=== PATIENT | female | born 1950 | race African-American/Black ===

== ENCOUNTER 2016-08-19 11:38 | Emergency (ER) | payer MEDICAID ==
[~2016-08-19] VITALS: Ht 162.6 cm; Wt 59.1 kg
[~2016-08-19 11:38] MED LIST: ALBU8.5H IH; AMLO-511 PO; MONT5TAB13 PO; SERT50TA12 PO
[2016-08-19 15:21] LABS: APPEARANCE,URINE TURBID (CLEAR); GLUCOSE, URINE (UA) NEGATIVE (NEGATIVE); KETONES,URINE NEGATIVE (NEGATIVE); LEUKOCYTE ESTERASE ,URINE LARGE (NEGATIVE); PH,URINE 5.5 (5.0-8.0); PROTEIN,URINE SEE CONFIRM (NEGATIVE)
[2016-08-19 15:34] LABS: ADD UA MICROSCOPIC YES; OCCULT BLOOD,URINE SMALL (NEGATIVE); RBC,URINE 26-50 /HPF (0-2); SQUAMOUS EPITHELIAL CELL,UR Few /LPF (None Seen); SULFOSALICYLIC ACID,URINE 3+ (Negative); WBC,URINE Full Field /HPF (0-5)
[2016-08-19] MEDS ORDERED: CefTRIAXone SODIUM 1 GM/VIAL IM ONE (16:00)
[2016-08-19] MEDS ORDERED: LIDOCAINE HCL/PF 1% 2 ML VIAL IM ONE (16:00)
[2016-08-19 16:06] VITALS: BP 116/71
== END 2016-08-19 16:19 | disposition home or self-care (01) ==
LOC: EMS 11:39
DX: N39.0 Urinary tract infection, site not specified (principal); J45.909 Unspecified asthma, uncomplicated; J44.9 Chronic obstructive pulmonary disease, unspecified; I10 Essential (primary) hypertension; E78.00 Pure hypercholesterolemia, unspecified; F14.90 Cocaine use, unspecified, uncomplicated
CPT/HCPCS: 81001; 81002; 87077; 87086; 96372; 99284; J0696; J3490

== ENCOUNTER 2018-09-18 18:34 | Emergency (ER) | payer MEDICARE, MEDICAID ==
[~2018-09-18] VITALS: Ht 162.6 cm; Wt 62.5 kg
[~2018-09-18 18:34] MED LIST changes: -ALBU8.5H IH; +ALBU8.5H8 IH
[2018-09-18 19:02] LABS: BASOPHILS % (AUTO) 0.9 % (0.0-2.0); EOSINOPHILS % (AUTO) 3.8 % (1.0-6.0); HEMATOCRIT 39.3 % (36-46); LYMPHOCYTES % (AUTO) 30.1 % (22.0-44.0); MEAN CORPUSCULAR HEMOGLOBIN 30.3 pg (26.0-34.0); MEAN CORPUSCULAR HGB CONC 33.1 G/dL (31.0-37.0); MEAN CORPUSCULAR VOLUME 92 fL (80-100); MONOCYTES # (AUTO) 0.7 K/uL (0.1-1.0); MONOCYTES % (AUTO) 10.4 % (2.0-9.0); NEUTROPHILS # (AUTO) 3.6 K/uL (1.8-7.7); NEUTROPHILS % (AUTO) 54.8 % (40.0-70.0); PLATELET COUNT (AUTO) 280 K/uL (150-450); RED CELL DISTRIBUTION WIDTH 13.7 % (11.5-14.5)
[2018-09-18 19:14] LABS: CALCIUM, TOTAL 9.8 mg/dL (8.8-10.5); CREATININE 1.59 mg/dL (0.60-1.30)
[2018-09-18 19:27] LABS: ALBUMIN 3.8 g/dL (3.4-5.0); BILIRUBIN,TOTAL 0.3 mg/dL (0.1-1.0)
[2018-09-18 21:30] LABS: APPEARANCE,URINE CLOUDY (CLEAR); BILIRUBIN,URINE NEGATIVE (NEGATIVE); GLUCOSE, URINE (UA) NEGATIVE (NEGATIVE); KETONES,URINE NEGATIVE (NEGATIVE); LEUKOCYTE ESTERASE ,URINE NEGATIVE (NEGATIVE); NITRATE,URINE NEGATIVE (NEGATIVE); OCCULT BLOOD,URINE NEGATIVE (NEGATIVE); PROTEIN,URINE NEGATIVE (NEGATIVE)
[2018-09-18] MEDS ORDERED: TraMADol HCL 50 MG TABLET PO ONE (21:30)
[2018-09-18 23:00] VITALS: BP 145/67
== END 2018-09-18 23:27 | disposition home or self-care (01) ==
LOC: EMS 18:36
DX: R07.81 Pleurodynia (principal); F14.10 Cocaine abuse, uncomplicated; F32.9 Major depressive disorder, single episode, unspecified; E78.00 Pure hypercholesterolemia, unspecified; I10 Essential (primary) hypertension; J45.909 Unspecified asthma, uncomplicated; Z79.899 Other long term (current) drug therapy; W01.0XXA Fall on same level from slipping, tripping and stumbling without subsequent striking against object, initial encounter; Y93.89 Activity, other specified; Y92.89 Other specified places as the place of occurrence of the external cause; Y99.8 Other external cause status

== ENCOUNTER → 2019-02-20 | Outpatient (CLI) | payer MEDICARE, MEDICAID ==
[~2019-02-20] MED LIST changes: -AMLO-511 PO; +AMLO5TAB9 PO
[2019-02-20 14:42] LABS: BASOPHILS % (AUTO) 0.7 % (0.0-2.0); EOSINOPHILS % (AUTO) 3.6 % (1.0-6.0); HEMATOCRIT 39.2 % (36-46); LYMPHOCYTES # (AUTO) 1.9 K/uL (1.0-4.8); LYMPHOCYTES % (AUTO) 38.3 % (22.0-44.0); MEAN CORPUSCULAR HEMOGLOBIN 30.5 pg (26.0-34.0); MEAN CORPUSCULAR HGB CONC 33.2 G/dL (31.0-37.0); MEAN CORPUSCULAR VOLUME 92 fL (80-100); MONOCYTES # (AUTO) 0.4 K/uL (0.1-1.0); MONOCYTES % (AUTO) 7.8 % (2.0-9.0); NEUTROPHILS # (AUTO) 2.4 K/uL (1.8-7.7); NEUTROPHILS % (AUTO) 49.6 % (40.0-70.0); PLATELET COUNT (AUTO) 232 K/uL (150-450); RED BLOOD CELL COUNT(AUTO) 4.27 MIL/uL (4.00-5.20); RED CELL DISTRIBUTION WIDTH 14.5 % (11.5-14.5)
[2019-02-20 14:56] LABS: CALCIUM, TOTAL 9.1 mg/dL (8.8-10.5); CREATININE 1.19 mg/dL (0.60-1.30); MAGNESIUM 2.1 mg/dL (1.80-2.40); PHOSPHORUS 3.9 mg/dL (2.5-4.9); POTASSIUM 4.2 mmol/L (3.5-5.1)
[2019-02-20 15:12] LABS: HEMOGLOBIN A1C 5.8 % (4.5-6.2)
== END | disposition home or self-care (01) ==
LOC: LABMN 13:56
PROVIDERS: ATTEND Internal Medicine Nephrology
DX: I12.9 Hypertensive chronic kidney disease with stage 1 through stage 4 chronic kidney disease, or unspecified chronic kidney disease (principal); N18.3 Chronic kidney disease, stage 3 (moderate); J42 Unspecified chronic bronchitis
CPT/HCPCS: 83036; 83735; 83970

== ENCOUNTER 2019-07-04 15:21 | Inpatient (IN) | payer MEDICARE, MEDICAID ==
[~2019-07-04] VITALS: Ht 167.6 cm; Wt 56.9 kg
[2019-07-04 17:09] LABS: BASOPHILS % (AUTO) 0.8 % (0.0-2.0); EOSINOPHILS % (AUTO) 3.5 % (1.0-6.0); HEMATOCRIT 39.5 % (36-46); LYMPHOCYTES # (AUTO) 2.1 K/uL (1.0-4.8); LYMPHOCYTES % (AUTO) 35.2 % (22.0-44.0); MEAN CORPUSCULAR HGB CONC 32.8 G/dL (31.0-37.0); MEAN CORPUSCULAR VOLUME 91 fL (80-100); MONOCYTES # (AUTO) 0.5 K/uL (0.1-1.0); MONOCYTES % (AUTO) 7.8 % (2.0-9.0); NEUTROPHILS # (AUTO) 3.2 K/uL (1.8-7.7); NEUTROPHILS % (AUTO) 52.7 % (40.0-70.0); PLATELET COUNT (AUTO) 221 K/uL (150-450); RED BLOOD CELL COUNT(AUTO) 4.33 MIL/uL (4.00-5.20); RED CELL DISTRIBUTION WIDTH 13.6 % (11.5-14.5)
[2019-07-04 17:21] LABS: CREATININE 1.19 mg/dL (0.60-1.30); POTASSIUM 3.9 mmol/L (3.5-5.1)
[2019-07-04 17:27] LABS: ALBUMIN 3.8 g/dL (3.4-5.0); BILIRUBIN,TOTAL 0.3 mg/dL (0.1-1.0); TOTAL PROTEIN, SERUM 6.8 g/dL (6.4-8.2)
[2019-07-04] MEDS ORDERED: 0.9% SODIUM CHLORIDE 10 ML SYRINGE IVP PRN (21:15)
[2019-07-04] MEDS ORDERED: ACETAMINOPHEN 325 MG TABLET PO PRN ×2 (21:15→22:30)
[2019-07-04] MEDS ORDERED: ONDANSETRON HCL 4 MG/2 ML VIAL IVP PRN ×2 (21:15→22:30)
[2019-07-04] MEDS ORDERED: MAGNESIUM HYDROXIDE SUSPENSION 30 ML UDCUP PO PRN (22:30)
[2019-07-04] MEDS ORDERED: HYDROCODONE/ACETAMINOPHEN 5-325 MG TABLET PO PRN (22:30)
[2019-07-04] MEDS ORDERED: ZOLPIDEM TARTRATE 5 MG TABLET PO PRN (22:30)
[2019-07-04] MEDS ORDERED: BISACODYL 10 MG RECTAL RECTAL SUPPOSITORY PR PRN (22:30)
[2019-07-04] MEDS ORDERED: MORPHINE SULFATE 2 MG/ML SYRINGE IVP PRN (22:30)
[2019-07-04] MEDS: HEPARIN SODIUM,PORCINE 5,000 UNITS/ML VIAL SQ SCH (23:28)
[2019-07-04] MEDS: NITROGLYCERIN 2% (1 GM=INCH) PACKET TP SCH (23:29)
[2019-07-05] VITALS (7 sets, daily range): BP systolic 115–146; BP diastolic 75–99
[2019-07-05] MEDS: NITROGLYCERIN 2% (1 GM=INCH) PACKET TP SCH ×2 (08:00→15:24)
[2019-07-05] MEDS: HEPARIN SODIUM,PORCINE 5,000 UNITS/ML VIAL SQ SCH ×2 (09:00→16:01)
[2019-07-05] MEDS: DOCUSATE SODIUM 100 MG CAPSULE PO SCH ×2 (09:00→21:00)
[2019-07-05] MEDS: AmLODIPine BESYLATE 5 MG TABLET PO SCH (09:01)
[2019-07-05] MEDS: PANTOPRAZOLE SODIUM 40 MG DR TABLET PO SCH (09:01)
[2019-07-05] MEDS: ASPIRIN 81 MG CHEWABLE TABLET PO SCH (09:01)
[2019-07-05] MEDS: MONTELUKAST SODIUM 10 MG TABLET PO SCH (09:01)
[2019-07-05] MEDS: SERTRALINE HCL 50 MG TABLET PO SCH (09:02)
[2019-07-05] MEDS ORDERED: IOVERSOL 320 MG/ML 100 ML VIAL ONE (10:07)
[2019-07-05] MEDS ORDERED: SODIUM CHLORIDE 0.9% 100 ML ONE (10:08)
[2019-07-05 10:37] LABS: BASOPHILS % (AUTO) 1.3 % (0.0-2.0); EOSINOPHILS % (AUTO) 3.4 % (1.0-6.0); HEMOGLOBIN 14.3 g/dL (12.0-16.0); LYMPHOCYTES # (AUTO) 2.1 K/uL (1.0-4.8); LYMPHOCYTES % (AUTO) 36.6 % (22.0-44.0); MEAN CORPUSCULAR HEMOGLOBIN 30.4 pg (26.0-34.0); MEAN CORPUSCULAR HGB CONC 33.2 G/dL (31.0-37.0); MEAN CORPUSCULAR VOLUME 92 fL (80-100); MONOCYTES # (AUTO) 0.5 K/uL (0.1-1.0); MONOCYTES % (AUTO) 8.9 % (2.0-9.0); NEUTROPHILS # (AUTO) 2.8 K/uL (1.8-7.7); NEUTROPHILS % (AUTO) 49.8 % (40.0-70.0); PLATELET COUNT (AUTO) 235 K/uL (150-450); RED CELL DISTRIBUTION WIDTH 13.7 % (11.5-14.5)
[2019-07-05 10:54] LABS: CHOL/HDL RATIO 2.4 (3.9-5.7); CREATININE 1.19 mg/dL (0.60-1.30); POTASSIUM 3.9 mmol/L (3.5-5.1)
[2019-07-05] MEDS ORDERED: PredniSONE 20 MG TABLET PO ONE (14:00)
[2019-07-05] MEDS ORDERED: ALBUTEROL SULFATE 2.5 MG/0.5 ML NEB SOLUTION NEB PRN (14:15)
[2019-07-06] MEDS: NITROGLYCERIN 2% (1 GM=INCH) PACKET TP SCH ×3 (01:25→16:00)
[2019-07-06] MEDS: HEPARIN SODIUM,PORCINE 5,000 UNITS/ML VIAL SQ SCH ×3 (01:25→16:00)
[2019-07-06 04:48] VITALS: BP 111/76
[2019-07-06 06:44] LABS: BASOPHILS % (AUTO) 0.6 % (0.0-2.0); EOSINOPHILS % (AUTO) 0 % (1.0-6.0); HEMATOCRIT 38.7 % (36-46); HEMOGLOBIN 12.7 g/dL (12.0-16.0); LYMPHOCYTES # (AUTO) 1.3 K/uL (1.0-4.8); LYMPHOCYTES % (AUTO) 21.7 % (22.0-44.0); MEAN CORPUSCULAR HEMOGLOBIN 29.7 pg (26.0-34.0); MEAN CORPUSCULAR HGB CONC 32.7 G/dL (31.0-37.0); MEAN CORPUSCULAR VOLUME 91 fL (80-100); MONOCYTES # (AUTO) 0.4 K/uL (0.1-1.0); MONOCYTES % (AUTO) 6.1 % (2.0-9.0); NEUTROPHILS # (AUTO) 4.3 K/uL (1.8-7.7); NEUTROPHILS % (AUTO) 71.6 % (40.0-70.0); PLATELET COUNT (AUTO) 224 K/uL (150-450); RED BLOOD CELL COUNT(AUTO) 4.27 MIL/uL (4.00-5.20); RED CELL DISTRIBUTION WIDTH 13.6 % (11.5-14.5)
[2019-07-06 06:56] LABS: CALCIUM, TOTAL 9.8 mg/dL (8.8-10.5); CREATININE 1.22 mg/dL (0.60-1.30)
[2019-07-06] MEDS: MONTELUKAST SODIUM 10 MG TABLET PO SCH (08:31)
[2019-07-06] MEDS: PANTOPRAZOLE SODIUM 40 MG DR TABLET PO SCH (08:32)
[2019-07-06] MEDS: AmLODIPine BESYLATE 5 MG TABLET PO SCH (08:32)
[2019-07-06] MEDS: SERTRALINE HCL 50 MG TABLET PO SCH (08:32)
[2019-07-06] MEDS: ASPIRIN 81 MG CHEWABLE TABLET PO SCH (08:32)
[2019-07-06] MEDS: DOCUSATE SODIUM 100 MG CAPSULE PO SCH (08:36)
[2019-07-06] MEDS ORDERED: FLUTICASONE/VILANTEROL 200-25 MCG/INH INHALER [14] IH SCH (09:00)
[2019-07-06] MEDS: MethylPREDNISolone SOD SUCC 125 MG/2 ML VIAL IVP SCH ×2 (11:30→16:00)
[2019-07-06 11:32] VITALS: BP 109/68
[2019-07-06] MEDS ORDERED: MONT5TAB13 PO (13:27)
[2019-07-06] MEDS ORDERED: AMLO5TAB9 PO (13:27)
[2019-07-06] MEDS ORDERED: ALBU8.5H8 IH (13:27)
[2019-07-06] MEDS ORDERED: ADV250 IH (13:28)
== END 2019-07-06 17:20 | disposition home or self-care (01) | DRG 190 ==
LOC: EMS 15:23 → 5S 23:00
PROVIDERS: ADMIT Internal Medicine; ATTEND Internal Medicine
DX: J44.1 Chronic obstructive pulmonary disease with (acute) exacerbation (principal); E43 Unspecified severe protein-calorie malnutrition; I10 Essential (primary) hypertension; E78.5 Hyperlipidemia, unspecified; Z68.20 Body mass index [BMI] 20.0-20.9, adult; F19.10 Other psychoactive substance abuse, uncomplicated; E78.00 Pure hypercholesterolemia, unspecified; F14.90 Cocaine use, unspecified, uncomplicated; F32.9 Major depressive disorder, single episode, unspecified; F41.9 Anxiety disorder, unspecified
CPT/HCPCS: 71260; 93005; 93306; 97116; 97162; J1644; J7050

== ENCOUNTER 2021-07-12 11:51 | Emergency (ER) | payer MEDICARE, MEDICAID ==
[~2021-07-12] VITALS: Ht 162.6 cm; Wt 56.8 kg
[~2021-07-12 11:51] MED LIST changes: +AMLO-257 PO; -AMLO5TAB9 PO; +FLUT1DIS6 IH; +GUAIF10 PO; +PRED-554 PO; +SERT-158 PO; -SERT50TA12 PO
[2021-07-12] MEDS ORDERED: IPRATROPIUM BROMIDE 0.5 MG/2.5 ML NEB SOLUTION NEB ONE (13:00)
[2021-07-12] MEDS ORDERED: ALBUTEROL SULFATE 2.5 MG/0.5 ML NEB SOLUTION NEB ONE (13:00)
[2021-07-12] MEDS ORDERED: PredniSONE 20 MG TABLET PO ONE (13:00)
[2021-07-12 13:15] LABS: BASOPHILS % (AUTO) 0.6 % (0.0-2.0); EOSINOPHILS % (AUTO) 2.9 % (1.0-6.0); HEMATOCRIT 39.3 % (36-46); HEMOGLOBIN 12.8 g/dL (12.0-16.0); LYMPHOCYTES # (AUTO) 1.9 K/uL (1.0-4.8); LYMPHOCYTES % (AUTO) 29.8 % (22.0-44.0); MEAN CORPUSCULAR HEMOGLOBIN 29.9 pg (26.0-34.0); MEAN CORPUSCULAR HGB CONC 32.5 G/dL (31.0-37.0); MEAN CORPUSCULAR VOLUME 92 fL (80-100); MONOCYTES # (AUTO) 0.6 K/uL (0.1-1.0); NEUTROPHILS # (AUTO) 3.6 K/uL (1.8-7.7); NEUTROPHILS % (AUTO) 56.7 % (40.0-70.0); PLATELET COUNT (AUTO) 214 K/uL (150-450); RED BLOOD CELL COUNT(AUTO) 4.26 MIL/uL (4.00-5.20); RED CELL DISTRIBUTION WIDTH 13.8 % (11.5-14.5)
[2021-07-12 13:30] LABS: CALCIUM, TOTAL 9.1 mg/dL (8.8-10.5); CREATININE 1.2 mg/dL (0.60-1.30); POTASSIUM 3.7 mmol/L (3.5-5.1)
[2021-07-12 13:59] LABS: BILIRUBIN,TOTAL 0.2 mg/dL (0.1-1.0)
[2021-07-12 14:00] LABS: ALBUMIN 3.8 g/dL (3.4-5.0); TOTAL PROTEIN, SERUM 7.4 g/dL (6.4-8.2)
[2021-07-12 14:05] LABS: APPEARANCE,URINE CLEAR (CLEAR); BILIRUBIN,URINE NEGATIVE (NEGATIVE); GLUCOSE, URINE (UA) NEGATIVE (NEGATIVE); KETONES,URINE NEGATIVE (NEGATIVE); LEUKOCYTE ESTERASE ,URINE TRACE (NEGATIVE); NITRATE,URINE NEGATIVE (NEGATIVE); OCCULT BLOOD,URINE NEGATIVE (NEGATIVE); PROTEIN,URINE NEGATIVE (NEGATIVE); SPECIFIC GRAVITIY, URINE 1.011 (1.003-1.030); UROBILINOGEN,URINE <=1.0 mg/dL (<=1.0)
[2021-07-12 14:07] LABS: BACTERIA,URINE None Seen /HPF (None Seen); RBC,URINE None Seen /HPF (0-2); SQUAMOUS EPITHELIAL CELL,UR Rare /LPF (None Seen); WBC,URINE 0-2 /HPF (0-5)
[2021-07-12] MEDS ORDERED: PRED-554 PO (17:36)
[2021-07-12] MEDS ORDERED: AZIT-84 PO (17:37)
[2021-07-12 17:58] VITALS: BP 126/70
== END 2021-07-12 18:25 | disposition home or self-care (01) ==
LOC: EMS 11:53
DX: J44.9 Chronic obstructive pulmonary disease, unspecified (principal); I10 Essential (primary) hypertension; E78.00 Pure hypercholesterolemia, unspecified; E11.9 Type 2 diabetes mellitus without complications; Z79.899 Other long term (current) drug therapy
CPT/HCPCS: 36415; 71045; 80053; 81001; 82550; 83880; 84484; 85025; 85379; 93005; 94640; 99285; J7512; J7613